=== PATIENT | female | born 2000 | race Caucasian/White ===

== ENCOUNTER 2019-05-26 12:32 | Emergency (ER) | payer BC, SELFPAY ==
[2019-05-26 12:34] VITALS: BP 117/67; PULSE 90; RESP 16; TEMP 36.1; O2SAT 95; BMI 28.3
--- NOTE | 2019-05-26 12:46 | RAD_ITS ---
STUDY: X-RAY CHEST REASON FOR EXAM: Female, 19 years old. PRODUCTIVE COUGH FOR OVER A WK, COLD LIKE S/S, SINUS ISSUES TECHNIQUE: PA and lateral views of the chest. COMPARISON: None. FINDINGS: The lungs are clear and expanded. There is no demonstrated pleural abnormality. Normal size heart. Normal mediastinum and leonard. Normal visualized pulmonary arteries. Normal visualized aortic arch and descending thoracic aorta. Normal visualized thoracic spine. Normal visualized ribs, clavicles, and shoulders. There is no demonstrated abnormality of the visualized soft tissue structures of the upper abdomen. RAD/Chest PA and Lateral IMPRESSION: Normal x-ray examination of the chest. Electronically Signed: Munir Valdez MD at 13:33 EST Tel , Service support ,
[2019-05-26 12:49] VITALS: O2SAT 98
--- NOTE | 2019-05-26 13:44 | ED.VISSUMM ---
- ER Visit Summary Date of Service: 05/26/19 Chief Complaint: [Cough] History of Present Illness: The patient is a 19 F [presents to the emergency department with complaint of a cough that started about a week ago. Patient states the cough got worse over the last 4 to 5 days. Patient states that her roommate had bronchitis recently. Cough is productive at times white and at times green phlegm. Patient was seen in urgent care 2 days ago and started on prednisone. Patient complains of exertional dyspnea. She is had low-grade fevers up to 100.0. She is had chills and sweats. She denies any chest pain.] Physical Examination: [HEENT-PERRLA, EOMI. Cranial nerves II through XII grossly intact. TMs clear. Mucous membranes moist. No adenopathy. Cardiovascular-regular rate and rhythm without murmur or ectopy Lungs-good aeration bilaterally. Patient has some faint expiratory wheezes noted. Mild tachypnea. No excessive muscle use or retractions. Abdomen-normoactive bowel sounds, soft, nontender, no rebound or rigidity, no peritoneal signs. Extremities-intact ?4, normal range of motion, normal pulses, atraumatic] Test Results: [S x-ray obtained was normal.] Emergency Department Course and Treatment: [He was given a DuoNeb aerosol and started on doxycycline.] Treatment Plan: [We will be treated with doxycycline and albuterol inhaler as well as Tessalon Perles. Patient advised to follow-up with primary care physician 3 to 5 days. Patient advised to return if increased difficulty breathing or condition should worsen anyway.] Disposition: [Discharged home in stable condition] Impression: [Asthmatic bronchitis] This note was generated with [employer] dictation software. It may contain incorrect words, spelling, and punctuation that were not noted in review of the chart prior to signing ED Disposition - Plan for ED Patient: Referrals: Maurice Fields MD [Primary Care Provider] -
--- NOTE | 2019-05-26 13:47 | ED.DEP ---
ED Disposition - Plan for ED Patient: Instructions: BRONCHITIS with Wheezing (Adult) Prescriptions: Doxycycline 100 mg PO BID #20 cap Prescription Printed Benzonatate [Tessalon Perle] 200 mg PO TID PRN PRN #20 cap PRN Reason: Cough Prescription Printed Referrals: Maurice Fields MD [Primary Care Provider] - 3-5 Days
[2019-05-26] MEDS: Ipratropium/Albuterol Sulfate 3 ML AMPUL.NEB INHALATION (13:52)
[2019-05-26 13:53] VITALS: PULSE 68; RESP 20
[2019-05-26] MEDS: Doxycycline 100 MG CAPSULE PO (14:04)
[2019-05-26 14:20] VITALS: O2SAT 99
== END 2019-05-26 14:21 | disposition home or self-care (01) ==
PROVIDERS: Emergency Provider Emergency Medicine; PCP Pediatrics
DX: J45.909 Unspecified asthma, uncomplicated (principal)
CPT/HCPCS: 71046; 94640; 99283